=== PATIENT | male | born 1985 | race Caucasian/White ===

== ENCOUNTER 2016-06-15 21:06 | Emergency (ER) | payer MEDICAID ==
[~2016-06-15] VITALS: Ht 175.3 cm; Wt 71.5 kg
[2016-06-15 21:08] VITALS: BP 132/75
== END 2016-06-15 23:43 | disposition home or self-care (01) ==
LOC: ED 23:37
DX: S02.31XA Fracture of orbital floor, right side, initial encounter for closed fracture (principal); F17.200 Nicotine dependence, unspecified, uncomplicated; X58.XXXA Exposure to other specified factors, initial encounter; Y93.89 Activity, other specified; Y92.009 Unspecified place in unspecified non-institutional (private) residence as the place of occurrence of the external cause; Y99.9 Unspecified external cause status
CPT/HCPCS: 70486; 99284

== ENCOUNTER 2016-07-03 09:58 | Emergency (ER) | payer MEDICAID ==
[~2016-07-03] VITALS: Ht 175.3 cm; Wt 70.5 kg
[2016-07-03] MEDS ORDERED: ZIPRASIDONE 20MG CAPSULE PO ONE (11:00)
[2016-07-03] MEDS ORDERED: ZIPRASIDONE 20MG CAPSULE ONE (11:27)
[2016-07-03 11:55] VITALS: BP 121/79
== END 2016-07-03 11:58 | disposition home or self-care (01) ==
LOC: ED 11:56
DX: F11.151 Opioid abuse with opioid-induced psychotic disorder with hallucinations (principal); F15.10 Other stimulant abuse, uncomplicated; F10.10 Alcohol abuse, uncomplicated
CPT/HCPCS: 99284

== ENCOUNTER 2016-07-08 22:51 | Emergency (ER) | payer MEDICAID ==
[~2016-07-08] VITALS: Ht 175.3 cm; Wt 66.1 kg
[2016-07-09 01:55] VITALS: BP 124/78
== END 2016-07-09 01:57 | disposition home or self-care (01) ==
LOC: ED 07-09 01:50
DX: R55 Syncope and collapse (principal); R51 Headache; Y04.0XXA Assault by unarmed brawl or fight, initial encounter
CPT/HCPCS: 70450